=== PATIENT | male | born 1970 | race African-American/Black ===

== ENCOUNTER 2020-10-13 18:54 | Inpatient (IN) | payer OTHER ==
[~2020-10-13] VITALS: Ht 177.8 cm; Wt 93.9 kg
--- NOTE | ~2020-10-13 | EMS ---
[address] [address] EMS Patient Care Report Name: EJ HURTADO Room #: 170-7 ADM IN M.R.#: [id number] Admission: 10/13/20 Attend Phys: Campos Lee MD Discharge: Date of : 66 Report #: [id number] THIS REPORT FOR: //name// Report Transmitted: 10/13/2020 22:01 EMS Care Summary [facility] MED-ACT Incident [id number] @ 10/13/2020 17:50 Incident Location [address] [place] [address] Patient EJ HURTADO Male, 50 Years 1970 Patient Address [address] [place] [address] Patient History Other,Cancer, Unspecified, Patient Allergies No known allergies, Patient Medications None Reported, Chief Complaint Weakness Disposition Transported No Lights/[place] Dispatch Reason Sick Person Transported To [facility] Narrative M1133 and [place] [facility] responded for a report of a "Sick Person". Upon arrival on scene, LFD crews were administering care to the patient and [address] [address] EMS Patient Care Report Name: EJ HURTADO Room #: 1707 ADM IN [place]#: [id number] Admission: 10/13/20 Attend Phys: Campos Lee MD Discharge: Date of : 66 Report #: [id number] informed EMS that the patient was lethargic and slightly confused. D assessed the patient's BGL and obtained a reading of "HI". As such, D crew members were attempting IV access via a 20 G IV to the patient's right AC. The IV attempt was unsuccessful. Per patient's on scene, she called 911 because she noticed that her had become more and more lethargic over the last few days and that he had grown weak and "out of it". Patient was alert and able to answer all questions appropriately, however, he was slow to answer. Per the patient, he began vomiting on Tuesday. Patient denied any current nausea or vomiting and denied any signs of COVID but stated that he felt weak and dehydrated since Tuesday. Patient's was concerned that the patient was too weak and he had an unsteady gait so she did not want him walking down the stairs. Patient was assisted onto a stair chair and brought down to the stretcher. Once secured to the stretcher the patient was brought into the ambulance for further evaluation and transport. Upon arrival in the ambulance, patient was placed on a 12 Lead EKG. Patient denied any chest pain or shortness of breath. EMS noted that the patient appeared to be in a Sinus Tachycardic rhythm with possible Hyperkalemia present. EMS assessed the patient for signs of a stroke even though his blood pressure was on the lower side. 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 EMS made two more attempts to establish IV access, both attempts were unsuccessful. Due to patient's blood pressure being on the lower side, the patient was placed in a Trendelenburg position for transport. EMS noted that the patient's blood pressure improved slightly during transport. Upon arrival at the hospital, EMS gave report [id number] to ER staff. Patient care was transferred at that time. No further care was rendered by EMS crews. Initial Vitals @PTAP: 120,R: 14,BP: 99/63,Pain: 0/10,GCS: 14,Temp: 96.4F,Glucose: -2,Revised Trauma: 12, @18:38P: 115,R: 16,BP: 98/61,Pain: 0/10,GCS: 15,SpO2: 96,Revised Trauma: 12, @18:23R: 16,Pain: 0/10,GCS: 15, @18:43P: 110,R: 16,BP: 111/57,Pain: 0/10,GCS: 15,SpO2: 97,Revised Trauma: 12, @18:21P: 115,R: 14,BP: 97/61,Pain: 0/10,GCS: 15,SpO2: 98,Revised Trauma: 12, @18:22R: 14,GCS: 15,SpO2: 97, @18:31P: 113,R: 16,BP: 117/57,Pain: 0/10,GCS: 15,SpO2: 96,Revised Trauma: 12, @18:26R: 16,GCS: 15,SpO2: 97, Assessments @19:04MENTAL:Person Oriented,Event Oriented,Time Oriented,Place Oriented,SKIN:HEENT:LUNG SOUNDS:ABDOMEN:PELVIS//GI:EXTREMITIES:PULSE:Radial: 1+ Thready,NEURO:Abnormal Gait, [facility] [address] [place] [address] EMS Patient Care Report Name: EJ HURTADO Room #: 170-7 ADM IN M.R.#: [id number] Admission: 10/13/20 Attend Phys: Campos Lee MD Discharge: Date of : 66 Report #: [id number] Impression Hyperglycemia (Not Diabetic) Procedures @18:2612-Lead ECGResponse: UnchangedSucceeded@18:2312-Lead ECGResponse: UnchangedSucceeded@18:08Surgical Mask on PatientResponse: Unchanged@18:29TrendelenburgResponse: ImprovedSucceeded@18:04 cc (20 ga) Site: Antecubital-RightResponse: UnchangedFailed@18:24 cc (18 ga) Site: Antecubital-LeftResponse: UnchangedFailed@18:26 cc (20 ga) Site: Antecubital-RightResponse: UnchangedFailed Timeline 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,BP: 99/63 M,PULSE: 120,RR: 14 R,SPO2: Ox,ETCO2: ,BG: -2,PAIN: 0,GCS: 14, 17:49,Call Received 17:49,Psap Call 17:50,Dispatched 17:50,En Route 18:01,On Scene 18:03,At Patient 18:04, cc 20 ga Site: Antecubital-Right,Response: UnchangedFailed, 18:08,Surgical Mask on Patient,Response: Unchanged 18:21,BP: 97/61 M,PULSE: 115,RR: 14 R,SPO2: 98 Ox,ETCO2: ,BG: ,PAIN: 0,GCS: 15, 18:22,BP: / M,PULSE: ,RR: 14 R,SPO2: 97 Ox,ETCO2: ,BG: ,PAIN: ,GCS: 15, 18:23,12-Lead ECG,Response: UnchangedSucceeded, 18:23,BP: / M,PULSE: ,RR: 16 R,SPO2: Ox,ETCO2: ,BG: ,PAIN: 0,GCS: 15, 18:24, cc 18 ga Site: Antecubital-Left,Response: UnchangedFailed, 18:26, cc 20 ga Site: Antecubital-Right,Response: UnchangedFailed, 18:26,12-Lead ECG,Response: UnchangedSucceeded, 18:26,BP: / M,PULSE: ,RR: 16 R,SPO2: 97 Ox,ETCO2: ,BG: ,PAIN: ,GCS: 15, 18:28,Depart Scene 18:29,Trendelenburg,Response: ImprovedSucceeded, 18:31,BP: 117/57 M,PULSE: 113,RR: 16 R,SPO2: 96 Ox,ETCO2: ,BG: ,PAIN: 0,GCS: 15, 18:38,BP: 98/61 M,PULSE: 115,RR: 16 R,SPO2: 96 Ox,ETCO2: ,BG: ,PAIN: 0,GCS: 15, 18:43,BP: 111/57 M,PULSE: 110,RR: 16 R,SPO2: 97 Ox,ETCO2: ,BG: ,PAIN: 0,GCS: 15, 18:46,At Destination 19:08,Call Closed Disclaimer v1.1 Copyright 2020 [employer] This EMS Care Summary contains data elements from the applicable legal record (which may be displayed differently). It is designed to provide pertinent information for the following purposes: continuity of care, clinical quality, and state data reporting. The complete legal record is available to ED staff [address] [address] EMS Patient Care Report Name: EJ HURTADO Room #: 170-7 ADM IN M.R.#: [id number] Admission: 10/13/20 Attend Phys: Campos Lee MD Discharge: Date of : 66 Report #: [id number] and administrators of the receiving hospital in [facility]'s Patient Tracker. All data is provided "as is."
[2020-10-13 18:54] VITALS: BP 118/65
[2020-10-13 19:30] LABS: BE(vivo) -19.4 mmol/L (-2 to +3); HCO3 6.2 mmol/L (22.0-26.0); PCO2 16.7 mmHg (35.0-45.0); PO2 105.9 mmHg (80.0-100.0); pH 7.191 (7.360-7.450); sO2 96.8 % (92.0-98.0)
[2020-10-13 19:52] LABS: URINE BILIRUBIN NEGATIVE (Negative); URINE BLOOD TRACE (Negative); URINE CLARITY CLEAR; URINE COLOR YELLOW; URINE GLUCOSE-RANDOM* 3+ (Negative); URINE KETONES 1+ (Negative); URINE LEUKOCYTES-REFLEX NEGATIVE (Negative); URINE NITRITE-REFLEX NEGATIVE (Negative); URINE PROTEIN (DIPSTICK) NEGATIVE (Negative); URINE UROBILINOGEN 0.2 E.U./dl (0.2-1.0)
[2020-10-13 19:54] LABS: ABSOLUTE NEUTROPHILS 12.6 thou/uL (1.4-8.2); BASOPHILS 0.2 % (0.0-2.0); HEMATOCRIT 51.4 % (42.0-52.0); HEMOGLOBIN 15.7 gm/dL (14.0-18.0); LYMPHOCYTES 4.6 % (24.0-44.0); MCH 28.5 pg (26.0-34.0); MCHC 30.5 g/dL (28.0-37.0); MCV 93.6 fL (80.0-100.0); MONOCYTES 6.2 % (1.0-8.0); PLATELET COUNT 217 thou/uL (150-400); RBC 5.49 mil/uL (4.50-6.00); RDW 14.3 % (10.5-14.5); WBC 14.1 thou/uL (4.0-11.0)
[2020-10-13 20:15] LABS: ALBUMIN 4.5 g/dL (3.4-5.0); CALCIUM 10.5 mg/dL (8.5-10.1); CREATININE 4.9 mg/dL (0.7-1.3); MAGNESIUM 3.7 mg/dL (1.8-2.4); TOTAL BILIRUBIN 0.6 mg/dL (0.2-1.0); TOTAL PROTEIN 8.8 g/dL (6.4-8.2)
[2020-10-13 20:21] LABS: POTASSIUM 7.9 mmol/L (3.5-5.1)
[2020-10-13 23:20] LABS: ALBUMIN 4.3 g/dL (3.4-5.0); BUN 63 mg/dL (7-18); CHLORIDE 113 mmol/L (98-107); CO2 14 mmol/L (21-32); CREATININE 4.2 mg/dL (0.7-1.3); MAGNESIUM 3.7 mg/dL (1.8-2.4); PHOSPHORUS 4.1 mg/dL (2.6-4.7)
[2020-10-13 23:21] LABS: ANION GAP 26 mmol/L (7-16); POTASSIUM 5.8 mmol/L (3.5-5.1); SODIUM 153 mmol/L (136-145)
[2020-10-13 23:22] LABS: GLUCOSE 884 mg/dL (74-106)
[2020-10-13 23:33] LABS: CHOLESTEROL 378 mg/dL (<200); HDL CHOLESTEROL 57 mg/dL (>40); LDL CHOLESTEROL 257 mg/dL (<100); TC:HDL 6.6 Ratio (Not establshd); TRIGLYCERIDE 323 mg/dL (<150); VLDL 65 mg/dL (<40)
[2020-10-13 23:38] LABS: SERUM ASSESSMENT Clear
--- NOTE | 2020-10-13 23:53 | NUR ---
This RN spoke to Celsa at this time. Reports to stop bolus of NS and to start 0.45% sodium chloride at 150 ml/hr
[2020-10-14] VITALS (16 sets, daily range): BP systolic 114–132; BP diastolic 73–86
[2020-10-14 06:06] LABS: ALBUMIN 3.9 g/dL (3.4-5.0); CALCIUM 10.6 mg/dL (8.5-10.1); CREATININE 3.9 mg/dL (0.7-1.3); PHOSPHORUS 2.5 mg/dL (2.5-4.9)
[2020-10-14 07:09] LABS: GLYCOHEMOGLOBIN (HGB A1C) 14.4 % (4.8-5.6)
--- NOTE | 2020-10-14 07:30 | EKG ---
[address] [address] ELECTROCARDIOGRAM REPORT Name: EJ HURTADO Room #: 170-16 ADM IN M.R.#: [id number] Admission: 10/13/20 Attend Phys: Campos Lee MD Discharge: Date of : 66 Report #: [id number] [facility] ED Test Date: 2020-10-13 Test Time: 18:58:02 Pat Name: EJ HURTADO Department: Room: 170 Gender: M Mesmerist: RANDOLPH : 1970 Requested By: Willis Tate Order Number: [id number] MD: West Dorman Measurements Intervals [place] Rate: 115 P: 68 [place]: 127 QRS: -27 QRSD: 92 T: 55 QT: 337 QTc: 466 Interpretive Statements Sinus tachycardia Consider right atrial enlargement Borderline left axis deviation ST elev, probable normal early repol pattern No previous ECG available for comparison Electronically Signed On 10-14-2020 7:30:37 ADVANCED RESEARCH PROGRAMS DIRECTOR by West Dorman [email or web address] <ELECTRONICALLY SIGNED> By: West Dorman MD, [facility] 10/14/20 0730 1858 57 West Dorman MD, FACC /EPI
[2020-10-14 09:38] LABS: CALCIUM 11.1 mg/dL (8.5-10.1); CREATININE 3.4 mg/dL (0.7-1.3); MAGNESIUM 3.6 mg/dL (1.8-2.4); PHOSPHORUS 0.5 mg/dL (2.6-4.7); TOTAL BILIRUBIN 0.4 mg/dL (0.2-1.0)
[2020-10-14 09:44] LABS: POTASSIUM 3.2 mmol/L (3.5-5.1)
--- NOTE | 2020-10-14 09:45 | NUR ---
RETURNED FROM US
--- NOTE | 2020-10-14 12:49 | NUR ---
COMPLETE ADMISSION HISTORY AND IV ACCESS IN ER.
[2020-10-14 13:23] LABS: ALBUMIN 3.9 g/dL (3.4-5.0); CALCIUM 10.6 mg/dL (8.5-10.1); CREATININE 2.9 mg/dL (0.7-1.3); MAGNESIUM 3.4 mg/dL (1.8-2.4); POTASSIUM 3.8 mmol/L (3.5-5.1)
--- NOTE | 2020-10-14 14:30 | NUR ---
PER DR WEBB INCREASE INSULIN DRIP TO 16UNITS/.HR LABS CALLED TO HIM
--- NOTE | 2020-10-14 14:35 | NUR ---
50 year old male presenting to the ED via EMS for high blood sugar. Pt states a few days ago he began drinking a lot of water and urinating much more. His reported to EMS that he had some slurred speech, weakness, and lethargy. He reports nausea but it has since gone away. Patient admitted for DKA with BG of 1196, new onset of DM, HgA1C of 14.4, Possible pancreatitis, possible ETOH , possible Autoimmune pancreatitis: -Lipase 2589 < 5050, Triglyceride level 323, Hyperkalemia 2/2 lack of insulin and Hypernatremia. Per orders patient to be admitted to the ICU for DKA protocol. Patients spouse is Princess Campo and her number is [phone]. Attempted times 2 to reach and got her voicemail each time. CM will follow for discharge needs.
--- NOTE | 2020-10-14 15:52 | NUR ---
ORIENTED TO ROOM AND ICU, BED LOW AND LOCKED, SIDE RAILS UPX3, CALL LIGHT IN REACH. TELE APPLIED. INSULIN GTT INFUSIN. SPOUSE AT BEDSIDE AND WILL TAKE ALL OF PATIENT'S VALUABLE HOME. WILL CONTINUE TO ASSESS.
[2020-10-14 17:42] LABS: ALBUMIN 3.8 g/dL (3.4-5.0); CALCIUM 10.7 mg/dL (8.5-10.1); CREATININE 2.7 mg/dL (0.7-1.3); MAGNESIUM 3.1 mg/dL (1.8-2.4); PHOSPHORUS 0.7 mg/dL (2.6-4.7); POTASSIUM 3.6 mmol/L (3.5-5.1)
--- NOTE | 2020-10-14 19:06 | NUR ---
SCDS ON BILAT AND BEDSIDE REPORT GIVEN TO NIGHT RN.
[2020-10-14 21:41] LABS: ALBUMIN 3.7 g/dL (3.4-5.0); CALCIUM 10.1 mg/dL (8.5-10.1); CREATININE 2.7 mg/dL (0.7-1.3); MAGNESIUM 2.8 mg/dL (1.8-2.4); PHOSPHORUS 1.2 mg/dL (2.5-4.9); POTASSIUM 3.8 mmol/L (3.5-5.1)
[2020-10-15] VITALS (27 sets, daily range): BP systolic 100–131; BP diastolic 57–88
[2020-10-15 02:58] LABS: BASOPHILS 0.3 % (0.0-2.0); HEMOGLOBIN 14.3 gm/dL (14.0-18.0)
[2020-10-15 03:01] LABS: ABSOLUTE NEUTROPHILS 8.3 thou/uL (1.4-8.2); EOSINOPHILS 0.5 % (0.0-3.0); HEMATOCRIT 42.8 % (42.0-52.0); LYMPHOCYTES 11.8 % (24.0-44.0); MCHC 33.4 g/dL (28.0-37.0); MONOCYTES 9.3 % (1.0-8.0); POLYS 78.1 % (36.0-66.0); RBC 4.92 mil/uL (4.50-6.00); RDW 13.4 % (10.5-14.5); WBC 10.6 thou/uL (4.0-11.0)
[2020-10-15 03:02] LABS: MCV 86.9 fL (80.0-100.0); PLATELET COUNT 119 thou/uL (150-400)
[2020-10-15 03:07] LABS: MAGNESIUM 2.3 mg/dL (1.8-2.4); PHOSPHORUS 1.3 mg/dL (2.6-4.7)
[2020-10-15 03:11] LABS: ALBUMIN 3.3 g/dL (3.4-5.0); CREATININE 2.4 mg/dL (0.7-1.3); POTASSIUM 3.3 mmol/L (3.5-5.1); TOTAL BILIRUBIN 0.4 mg/dL (0.2-1.0); TOTAL PROTEIN 6.8 g/dL (6.4-8.2)
[2020-10-15 03:12] LABS: CALCIUM 9.7 mg/dL (8.5-10.1)
--- NOTE | 2020-10-15 07:05 | NUR ---
ASSUMED PT CARE AT 1900. PT A&0X4, BUT LETHARGIC. PT ON INSULIN DRIP AND DSW. PT'S UPDATED AT 2039 AND THEN AT 0530AM. PT SI STABLE, U/O OF 600ML, NA TRENDING DOWN. WILL CONTINUE TO CLOSELY MONITOR.
[2020-10-15 07:11] LABS: ALBUMIN 3.2 g/dL (3.4-5.0); CALCIUM 9.7 mg/dL (8.5-10.1); CREATININE 2.6 mg/dL (0.7-1.3); MAGNESIUM 2.3 mg/dL (1.8-2.4); POTASSIUM 3.6 mmol/L (3.5-5.1)
--- NOTE | 2020-10-15 07:55 | NUR ---
ASSUMED CARE OF PT AT 0700. DR. CUMMINGS AT BEDSIDE AT 0800. HE WANTS US TO ASK HURA ABOUT GETTING HIM ON A REG DIET AND HE WANTS HIM TO DRINK LOTS OF WATER TO HELP WITH HIS SODIUM LEVELS.
--- NOTE | 2020-10-15 10:09 | NUR ---
Case opened to follow for dc planing. Pt is currently in ICU on insulin gtt with DKA/new dx of dm. Side Panel Padder spoke with the pt's who is at bedside this am. Pt is darrel. His indicates her cell number is [phone] and she is available as needed. She confirmed that the pt does not have a PCP but she does, Dr. Veto Barry. She is calling their office today to see if they can accept the pt for care at al. She would also like to be involved in any dc planning or education for new dx as she will be helping the pt manage this at al. She did buy a glucometer the day he came to the hospital to check his blood sugar. She reports that the pt is active and indep prior to admission and he is self employed. Cm role introduced. No cm interventions indicated at this time. Pt's also notes that their ins plan has dm education and tele med options as well.
[2020-10-15 11:56] LABS: CALCIUM 9.5 mg/dL (8.5-10.1); CREATININE 2.5 mg/dL (0.7-1.3); POTASSIUM 3.6 mmol/L (3.5-5.1)
--- NOTE | 2020-10-15 13:45 | NUR ---
Dr. Akers, GI present to see pt and his . updated on pt status. md to place orders pertaining to a bowel regimen.
--- NOTE | 2020-10-15 20:37 | NUR ---
1909-SPOKE WITH , BRIDGET AND GAVE BRIEF UPDATE; SHE WILL CALL BACK AROUND 2099 FOR ANOTHER UPDATE. 2029-SPOKE WITH ANDREWS NAVARRO NP, REGARDING B.S. 285 AND HYPERNATREMIA. ORDERED STAT BMP AND WILL CALL HER BACK WITH RESULTS.
[2020-10-15 21:01] LABS: CALCIUM 9.1 mg/dL (8.5-10.1); POTASSIUM 3.3 mmol/L (3.5-5.1)
[2020-10-16] VITALS (34 sets, daily range): BP systolic 106–139; BP diastolic 60–81
[2020-10-16 09:29] LABS: ALBUMIN 2.5 g/dL (3.4-5.0); CALCIUM 8.6 mg/dL (8.5-10.1); CREATININE 1.7 mg/dL (0.7-1.3); PHOSPHORUS 3.7 mg/dL (2.5-4.9)
[2020-10-16 09:34] LABS: POTASSIUM 2.8 mmol/L (3.5-5.1)
--- NOTE | 2020-10-16 10:07 | HC ---
[facility] [place] [address] CONSULTATION Name: EJ HURTADO Room #: 248-P ADM IN M.R.#: [id number] Admission: 10/13/20 Attend Phys: Campos Lee MD Discharge: Date of : 66 Report #: [id number] THIS REPORT FOR: cc: Veto Barry MD, Travis J. MD Al-Mubaslat, Ahmad MD ~ DATE OF SERVICE: 10/15/2020 ENDOCRINE CONSULTATION NOTE CONSULTING PHYSICIAN: Dr. Villanueva. REASON FOR CONSULTATION: Hyperosmolar diabetic coma, type 2 diabetes mellitus. HISTORY OF PRESENT ILLNESS: This is a 50-year-old male patient whose medical background is fairly unremarkable other than for having been told that he had borderline diabetes in the past as well as hypertension, and a vague report of cancer. The patient has reportedly felt exceedingly weak, fatigued for the week prior to presentation, he had experienced polyuria, polydipsia and on the day of presentation reported intractable nausea and vomiting. Furthermore, he developed slurred speech and lethargy and was near unresponsiveness when he was brought in by his . On arrival, the patient was found to have severe hyperglycemia with blood glucose of 1196 mg/dL. He was also deeply acidotic with a pH of 7.19, and was found to have severe hyperkalemia with a potassium of 7.9. Subsequently, the patient was admitted to the ICU and has been treated aggressively with IV insulin therapy, IV fluid management, and electrolyte therapy as needed. While the patient improved considerably from the glycemic standpoint, he continues to have residual renal insufficiency and persistent difficulties with water deficit and hypernatremia. The patient recalls having been first told that he had borderline diabetes in 2012, but he admits not having checked into it much after that. His noticed a massive weight loss of 40 pounds over the past year with intermittent issues of weakness and fatigability. The patient reports blurring of vision that have gotten worse over the past 48 hours. REVIEW OF SYSTEMS: CONSTITUTIONAL: Fatigue, tiredness, but not fever or chills. Weight loss of 40 pounds over the past year. HEENT: Blurring of vision, but not sore throat or ear pain. PULMONARY: Negative for shortness of breath, cough or hemoptysis. CARDIAC: Negative for chest pain, but noted for palpitations and lightheadedness. [address] [address] CONSULTATION Name: EJ HURTADO Caroline Room #: 248-P [facility] IN .R.#: [id number] Admission: 10/13/20 Attend Phys: Campos Lee MD Discharge: Date of : 66 Report #: [id number] GASTROINTESTINAL: Intractable nausea and vomiting prior to presentation. NEUROLOGY: Lightheadedness, dizziness, but not seizure activity or severe frequent headaches. Otherwise, review of systems is noncontributory other than those mentioned in HPI. PAST MEDICAL HISTORY: 1. Hypertension. 2. Reports of borderline diabetes. 3. History of left lower extremity DVT. 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 OUTPATIENT MEDICATIONS: None. ALLERGIES: No known drug allergies. FAMILY HISTORY: Noncontributory. 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 He is , he has 6 children. The patient denies use of tobacco or alcohol. PHYSICAL EXAMINATION: GENERAL: Pleasant -Austrian male patient who is not in apparent pain or distress. VITAL SIGNS: Blood pressure is 119/67 mmHg, heart rate is 103 beats per minute, respirations 15 per minute, temperature 37.2 degrees Celsius. CONSTITUTIONAL: The patient is lying in bed supine, he appears relatively comfortable, not in apparent distress. HEENT: Anicteric sclerae. Intact extraocular motions. NECK: Supple, without JVD, carotid bruits or lymphadenopathy. I do not appreciate thyromegaly. CHEST: Noted for good air entry bilaterally without wheezes or crackles. HEART: Regular rate and rhythm without murmurs or gallops. ABDOMEN: Soft, lax. No guarding. Active bowel sounds. EXTREMITIES: Lower extremity exam is negative for ankle edema, skin breaks or ulcerations. NEUROLOGIC: Awake, alert and oriented to time, place and person. The rest of his examination is nonfocal. PSYCHIATRIC: Pleasant, interactive. Normal mood and affect. LABORATORY DATA: Blood glucose values were reviewed at length since his presentation. As noted above, he presented with near 1200 mg/dL blood glucose, however, blood glucose has been consistently under 160 mg/dL over the past several hours. Otherwise, sodium is currently at 164. Potassium is currently at 3.6, chloride 123, CO2 of 29, was down to 12 on presentation. Anion gap is [facility] [address] [place] [address] CONSULTATION Name: EJ HURTADO Room #: 248-P ADM IN [place]#: [id number] Admission: 10/13/20 Attend Phys: Campos Lee MD Discharge: Date of : 66 Report #: [id number] 12, was at 27 on presentation. BUN 28, creatinine is 2.5, was at 4.9 on presentation. Lipase 333, was up to 5050 on presentation. Total bilirubin 0.4, calcium 9.5, phosphorus 1.0, magnesium 2.3, alkaline phosphatase 87, ALT 26, total protein 6.8, albumin 3.2. EGFR 33, lactic acid 1.1. Total cholesterol 378, triglycerides 323, HDL 57, LDL 257. White blood count 10.6, hemoglobin 14.3, hematocrit 42.8, platelets 119. Hemoglobin A1c 14.4%. ASSESSMENT AND PLAN: 1. Hyperosmolar diabetic coma. The patient presented with severe hyperglycemia and associated hyperosmolarity and severe water deficit. The patient has been able to achieve normal glycemia with intravenous insulin therapy as noted above. However, he continues to have significant water deficits and maintains renal insufficiency state, nonetheless one that has improved since arrival. Given the patient's stability over the past several hours as he has been utilizing an average of 4 units of insulin per hour, I will convert the patient at this point in time to a combination of Lantus insulin 30 units daily starting now as well as Humalog supplemental scale, moderate intensity with blood glucose monitoring every 4-6 hours. Once the patient manages to restore consistent p.o. intake, I will consider meal Humalog insulin coverage. 2. Type 2 diabetes mellitus. Although this is a new formal diagnosis for the patient, he has in all likelihood been in diabetic state for quite a bit of time, likely a few years at least. The patient and his were counseled at length about the pathogenesis of type 2 diabetes mellitus, its implications, and about the importance of achieving and maintaining adequate glycemic control both short term and group home to avoid short term and long-term complications of diabetes mellitus. I explained that insulin therapy would be the mainstay choice of treatment short term given the ongoing difficulties with renal insufficiency and that oral options could be considered in the near future once he had demonstrated enough stability. However, the documentation of pancreatitis would preclude the utilization of GLP-1 analogs and DPP-4 inhibitors in the future. 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 3. Hyponatremia. Severe at 164. Dr. Hays is following from the Nephrology standpoint and has been encouraging the patient to increase his water intake. This will be monitored closely. [address] [address] CONSULTATION Name: EJ HURTADO Caroline Room #: 248-P ADM IN M.R.#: [id number] Admission: 10/13/20 Attend Phys: Campos Lee MD Discharge: Date of : 66 Report #: [id number] 4. Renal insufficiency. This has improved significantly over the past 48 hours with IV fluid support. Dr. Hays continues to monitor his situation closely. 5. Hyperlipidemia. The patient has severe hyperlipidemia. Although one would expect a significant improvement to result from an improved level of glycemic control, I believe the patient would eventually need statin therapy. However, I would elect to start this only when the patient has proved to be consistently clinically stable. 6. Pancreatitis. This was documented on the basis of very high lipase levels of 5050 The patient has since drop his lipase level to 333 and is not reporting symptoms that are consistent with pancreatitis. It appears that his abdominal and pelvic CT scan studies were negative for pancreatitis changes. This might have been induced by alcohol intake. This occurrence would impose limitation on utilizing GLP-1 analogs and DPP-4 inhibitors in the future. I certainly appreciate this consultation by Dr. Villanueva. <ELECTRONICALLY SIGNED> By: Williams Glasgow MD 10/16/20 1007 1557 1713 Williams Glasgow MD /nt
--- NOTE | 2020-10-16 16:35 | NUR ---
ASSUMED CARE PT APPROX 0900. PT ALERT AND ORIENTED.VSS. DENIES PAIN. O2 SATS WNL ROOM AIR DENIES SOB. BLOOD SUGARS MANAGED WITH INSULIN PER ORDERS. 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 SPOUSE AT BEDSIDE THROUGHOUT SHIFT, REQUESTED TO SPEAK TO PHYSICIAN-- PHYSICIAN NOTIFIED, PLANS TO TALK TO SPOUSE IN AM. [place] REMAINS IN PLACE FOR STRICT I&O, UOP ADEQUATE. NO BM THIS SHIFT, APPETITE ADEQUATE. PLAN FOR PT DC ONCE MEDICALLY STABLE. PT CURRENTLY RESTING IN BED WITH SPOUSE AT SIDE. DENIES NEEDS/CONCERNS AT THIS TIME. WILL CONT TO MONITOR AND FOLLOW POC. WILL PASS ON REPORT TO NOC RN.
[2020-10-17] VITALS (9 sets, daily range): BP systolic 107–126; BP diastolic 71–82
--- NOTE | 2020-10-17 02:53 | NUR ---
ASSUMED PT CARE AT 1900. VSS. PT A&0X4. PT DENIES PAIN. PT HAD A RESTFUL NOC. TRANSFER ORDERS GOTTEN FOR CCT. PT IS STABLE, ON D5W STILL. WILL CALL REPORT TO FLOOR RN.
--- NOTE | 2020-10-17 05:30 | NUR ---
PT TRANSFERRED FROM ICU ABOUT 0400. ALERT AND ORIENTED. VITALS STABLE. DENIES PAIN, CHEST DISCOMFORT, NAUSEA, OR VOMITING. PT STEADY ON HIS FEET. DW@150, [place] CATHETER PATENT. SR ON THE MONITOR. PT TRANSFERRED IN STABLE CONDITION. PT PROGRESSING TOWARDS GOAL. WILL CONTINUE WITH POC
[2020-10-17 05:53] LABS: ALBUMIN 2.5 g/dL (3.4-5.0); CALCIUM 8.9 mg/dL (8.5-10.1); CREATININE 1.5 mg/dL (0.7-1.3); PHOSPHORUS 3.6 mg/dL (2.5-4.9)
[2020-10-17 06:02] LABS: POTASSIUM 3.9 mmol/L (3.5-5.1)
[2020-10-17 06:06] LABS: IgG 1011 mg/dL (603-1613)
[2020-10-17] MEDS ORDERED: HUMALOG KW100 UNIT/1 SUBQ (10:04)
[2020-10-17] MEDS ORDERED: LANTUS SOL100 UNIT/1 SUBQ (10:04)
[2020-10-17] MEDS ORDERED: FREESTYLE LIBR1 EAC2 MISCELL (10:05)
[2020-10-17] MEDS ORDERED: LIPITOR20 MG PO (10:08)
[2020-10-17] MEDS ORDERED: BD ULTRA-FINE1 EAC2 SUBQ (10:19)
--- NOTE | 2020-10-17 16:46 | NUR ---
ASESSMENT CHARTED - MEDS PER DEC - NO CO'S OF PAIN OR NASUEA. SCARLETT DIET AND FLUIDS. ACCUCHECKS COVERED PER DEC - PT SEEN BY MOLLY DOC THIS AFTERNOON. ALSO SEEN BY CENTRIFUGAL SUPERVISOR FOR EDUCATION. PT UP AD ;IB IN ROOM STEADY ON FEET. PT DISCHARGED HOME THIS AFTERNOON. INSTRUCTION RE HOME MEDS/ CARE AND FOLLOW UP GIVEN TO PATIENT AND SPOUSE, - STATED UDERSTANDING OF INSTRUCTION GIVEN. PT TO FOLLOW UP WITH ENDOCRINE DR FOR FUTHER CARE AND WITH PCP. PT LEFT UNIT VIA SHEELCHAIR - HOME VIA PVT VEHICLE ACCOMAPIANIED BY . NO CO'S AT TIME OF D/C.
== END 2020-10-17 15:12 | disposition home or self-care (01) | DRG 637 ==
LOC: ER 18:54 → 2N 20:33 → ICU 20:33 → EROBS 20:33 → ICU 10-14 15:36 → 2N 10-17 04:47
PROVIDERS: Emergency Medicine; Hospitalist; Internal Medicine; Nurse Practitioner; Nurse Practitioner Family; ADMIT Internal Medicine; ATTEND Internal Medicine
DX: E11.10 Type 2 diabetes mellitus with ketoacidosis without coma (principal); K85.90 Acute pancreatitis without necrosis or infection, unspecified; N17.0 Acute kidney failure with tubular necrosis; R65.11 Systemic inflammatory response syndrome (SIRS) of non-infectious origin with acute organ dysfunction; E87.0 Hyperosmolality and hypernatremia; N13.30 Unspecified hydronephrosis; E87.1 Hypo-osmolality and hyponatremia; N17.8 Other acute kidney failure; E11.01 Type 2 diabetes mellitus with hyperosmolarity with coma; E86.0 Dehydration; E78.5 Hyperlipidemia, unspecified; E87.6 Hypokalemia; E87.5 Hyperkalemia; I10 Essential (primary) hypertension; F10.20 Alcohol dependence, uncomplicated; Y90.9 Presence of alcohol in blood, level not specified; Z86.718 Personal history of other venous thrombosis and embolism; Z92.21 Personal history of antineoplastic chemotherapy; Z92.3 Personal history of irradiation; Z85.89 Personal history of malignant neoplasm of other organs and systems
CPT/HCPCS: 10078